=== PATIENT | male | born 1935 | race Caucasian/White ===

== ENCOUNTER 2017-02-03 07:16 | Observation (INO) | payer MEDICARE, OTHER ==
[~2017-02-03] VITALS: Ht 182.9 cm; Wt 79.5 kg
[~2017-02-03 07:16] MED LIST: ADVAI250I PO; ALLO300 PO; ASPI81TA82 PO; CARV6.25 PO; COUM5TAB PO; FERR325T PO; FURO1TAB93 PO; IPRAAER IN; KCL10C PO; LIDOCAINE 1%/EPINEPHrine 1:100,000 SOLN 30 ML VIAL ONE; MECL25CH PO; PROT40TA PO; SIMV10 PO; TAB-TAB PO
[2017-02-03] MEDS ORDERED: FERR325C PO (09:26)
[2017-02-03] MEDS ORDERED: ADVA115A INH (09:26)
[2017-02-03] MEDS ORDERED: SIMV10TA PO (09:26)
[2017-02-03] MEDS ORDERED: IPRAAER INH (09:26)
[2017-02-03] MEDS ORDERED: MECL-62 PO (09:26)
[2017-02-03] MEDS ORDERED: POTA10TA2 PO (09:26)
[2017-02-03] MEDS ORDERED: NITR1SUB3 SL (09:26)
[2017-02-03] MEDS ORDERED: ASPI81TA11 PO (09:26)
[2017-02-03] MEDS ORDERED: FURO20TA PO (09:26)
[2017-02-03] MEDS ORDERED: COUM5TAB PO (09:26)
[2017-02-03] MEDS ORDERED: ALLO300T2 PO (09:26)
[2017-02-03] MEDS ORDERED: PANT20TA2 PO (09:26)
[2017-02-03] MEDS ORDERED: CARV6.252 PO (09:26)
[2017-02-03] MEDS ORDERED: INSULIN HUMAN REGULAR 1,000 UNITS/10 ML VIAL SQ PRN (09:45)
[2017-02-03] MEDS ORDERED: POVIDONE IODINE 5% (ANTISEPSIS KIT) 4 APPLICATIONS EACH NARE PRN (09:45)
[2017-02-03] MEDS ORDERED: CHLORHEXIDINE GLUCONATE 2 % 1 PACK (2 CLOTHS) TOPICAL PRN (09:45)
[2017-02-03] MEDS ORDERED: LACTATED RINGER'S 1000 ML IV PRN (09:45)
[2017-02-03] MEDS ORDERED: SODIUM CHLORID 0.9% 500 ML IV PRN (09:45)
[2017-02-03] MEDS ORDERED: METOPROLOL TARTRATE 25 MG TAB PO PRN (09:45)
[2017-02-03 09:49] LABS: INTERNATIONAL NORMALIZED RATIO 1.4 RATIO; PROTHROMBIN TIME - PATIENT 16.1 SEC (9.8-11.6)
[2017-02-03] MEDS: AMPICILLIN/SULBAC 3 GM/NS 100 ML IV SCH ×6 (10:53→20:00)
[2017-02-03] MEDS ORDERED: LACTATED RINGER'S 1000 ML INJ 1,000 ML IV ONE (12:00)
[2017-02-03] MEDS ORDERED: PROPOFOL 200 MG/20 ML AMP IV ONE (12:00)
[2017-02-03] MEDS ORDERED: PHENYLEPH/NS 1000 MCG/10 ML SYR IV ONE (12:00)
[2017-02-03] MEDS ORDERED: ePHEDrine/NS 25 MG/5 ML SYR IV ONE (12:00)
[2017-02-03] MEDS ORDERED: BACITRACIN TOP OINT 15 GM TUBE ONE (12:23)
[2017-02-03] MEDS ORDERED: AMPICILLIN-SULBACTAM INJ 1,500 MG VIAL ONE (14:10)
[2017-02-03] MEDS: LACTATED RINGER'S 1000 ML INJ 1,000 ML IV SCH (14:30)
[2017-02-03] MEDS ORDERED: ACETAMINOPHEN/HYDROcodone 325 MG/5 MG TAB PO PRN (14:30)
[2017-02-03] MEDS ORDERED: ONDANSETRON HCL 4 MG/2 ML VIAL IV PUSH PRN (14:30)
[2017-02-03 16:00] VITALS: BP 125/62; PULSE 78; RESP 17; TEMP 98; O2SAT 94; O2SAT 96
[2017-02-03] MEDS ORDERED: NITROGLYCERIN 0.4 MG SL 25 TABS/BTL SL PRN (17:15)
[2017-02-03] MEDS: ALBUTEROL SULFATE 90 MCG/ACT HFA 8 GM INHALER INH SCH ×2 (18:00→20:53)
[2017-02-03] MEDS: FUROSEMIDE 20 MG TAB PO SCH ×2 (18:25→20:52)
[2017-02-03 19:30] VITALS: O2SAT 98
[2017-02-03 20:00] VITALS: BP 160/87; PULSE 112; RESP 18; TEMP 96.6; O2SAT 96
[2017-02-03] MEDS: POTASSIUM CHLORIDE 10 MEQ CONTROLLED RELEASE TAB PO SCH (20:52)
[2017-02-03] MEDS ORDERED: ADVAIR PO SCH (21:00)
[2017-02-03] MEDS ORDERED: CARVEDILOL 6.25 MG TAB PO SCH (21:00)
[2017-02-04] VITALS: BP 140/87; PULSE 105; RESP 18; TEMP 96.4; O2SAT 96
[2017-02-04] MEDS: LACTATED RINGER'S 1000 ML INJ 1,000 ML IV SCH (03:00)
[2017-02-04] MEDS: AMPICILLIN/SULBAC 3 GM/NS 100 ML IV SCH ×2 (04:00)
[2017-02-04 07:50] VITALS: BP 165/91; PULSE 115; RESP 20; TEMP 96.3; O2SAT 98
[2017-02-04] MEDS: POTASSIUM CHLORIDE 10 MEQ CONTROLLED RELEASE TAB PO SCH (08:47)
[2017-02-04] MEDS ORDERED: FERROUS SULFATE 325 MG (65 MG ELEMENTAL IRON) TAB PO SCH (09:00)
[2017-02-04] MEDS ORDERED: ALLOPURINOL 300 MG TAB PO SCH (09:00)
[2017-02-04] MEDS ORDERED: PRAVASTATIN SOD 20 MG TAB PO SCH (09:00)
[2017-02-04] MEDS ORDERED: PANTOPRAZOLE SOD 20 MG DELAYED RELEASE TAB PO SCH (09:00)
[2017-02-04] MEDS ORDERED: TIOTROPIUM BROMIDE 18 MCG INH INH SCH (09:00)
[2017-02-04] MEDS ORDERED: WARFARIN SOD 5 MG TAB PO SCH (16:00)
--- NOTE | 2017-02-10 13:26 | MP ---
cc: HUMERA BOND M.D. DATE OF SURGERY 02/03/[address] Humera bond PREOPERATIVE DIAGNOSIS 1. Left submandibular chronic sialoadenitis. 2. Left submandibular sialolithiasis. POSTOPERATIVE DIAGNOSIS 1. Left submandibular chronic sialoadenitis. 2. Left submandibular sialolithiasis. OPERATION PERFORMED Excision of left submandibular salivary gland. INDICATIONS Documented in the history and physical. DESCRIPTION OF OPERATION The patient was taken to OR #2 and placed in the supine position. Following induction of general anesthesia and intubation, he was position positioned for surgery of the left submandibular triangle. The skin was marked with a 6 cm line two fingerbreadths below the inferior border of the mandible. This was overlying the inferior margin of the submandibular gland. The line was injected with 3 mL of 1% Xylocaine with epinephrine 1:100,000. He was then prepped and draped for surgery. The line was incised down to the subplatysmal plane exposing the superficial layer of deep cervical fascia. This fascia was then elevated and bluntly penetrated below the level of the submandibular gland and the fascia was then dissected free from the submandibular gland on all sides using blunt and bipolar cautery dissection. During this process, the facial artery and vein were encountered. These were doubly clamped and ligated and freed from the salivary gland. Dissection continued on the superior aspect of the gland and the lingual nerve was identified. This was then freed and preserve within the neck. Mylohyoid muscle was retracted anteriorly exposing the duct of the gland. This was freed from the surrounding fascial attachments and doubly clamped and ligated using a 2-0 suture ligature. The gland which included a stone and the duct were then passed off the field as specimen. The wound was irrigated and suctioned. Closure was then begun following placement of a quarter inch Ashley drain into the depths of the wound. The platysma layer was closed with interrupted 3-0 Vicryl. Skin was closed in two layers with 4-0 Vicryl subcutaneous and 5-0 fast-absorbing plain gut in the skin. The drain was sewn in with a 3-0 Vicryl suture. A [place] dressing was applied and the procedure was terminated. The patient was reversed from anesthesia and taken to recovery in good condition. There were no complications. Blood loss was 40 mL. MD AJ Rivas/CLAUDIA /7:47 AM /1:20 PM
== END 2017-02-04 09:59 | disposition home or self-care (01) ==
LOC: PHSDC 07:16 → PH3B 14:47
PROVIDERS: ADMIT Otolaryngology; ATTEND Otolaryngology
DX: K11.23 Chronic sialoadenitis (principal); I10 Essential (primary) hypertension; K21.9 Gastro-esophageal reflux disease without esophagitis; J44.9 Chronic obstructive pulmonary disease, unspecified; I48.91 Unspecified atrial fibrillation; Z79.01 Long term (current) use of anticoagulants; Z95.810 Presence of automatic (implantable) cardiac defibrillator; Z79.899 Other long term (current) drug therapy; Z87.891 Personal history of nicotine dependence
CPT/HCPCS: 00100; 36415; 42440; 85610; 88307; G0378; J0295; J2370; J3010; J7120; 88305

== ENCOUNTER → 2017-07-28 | Outpatient (CLI) | payer MEDICARE, OTHER ==
[~2017-07-28] MED LIST changes: +ADVA115A INH; -ADVAI250I PO; -ALLO300 PO; +ALLO300T2 PO; +ASPI81TA23 PO; -ASPI81TA82 PO; -CARV6.25 PO; +CARV6.252 PO; +FERR325C PO; -FERR325T PO; -FURO1TAB93 PO; +FURO20TA PO; -IPRAAER IN; +IPRAAER INH; -KCL10C PO; -LIDOCAINE 1%/EPINEPHrine 1:100,000 SOLN 30 ML VIAL ONE; +MECL-62 PO; -MECL25CH PO; +NITR1SUB3 SL; +PANT20TA2 PO; +POTA10TA2 PO; -PROT40TA PO; -SIMV10 PO; +SIMV10TA PO; -TAB-TAB PO
--- NOTE | 2017-07-31 09:51 | RSPPFT ---
DATE OF PROCEDURE: 07/28/17 COMMENTS: Spirometry with FVC of 4.0 at 96% of predicted, FEV1 of 2.1 at 66%, FEV1/FVC ratio is decreased. Flow is decreased at FEF 25, FEF 50, FEF 75 and FEF 25-75. There is no response after bronchodilator treatment. Lung volumes show residual volume is increased. TLC is normal. Severely decreased diffusion capacity. Flow volume loop indicates an obstructive pattern. IMPRESSION: 1. Moderately severe obstructive lung disease. 2. No response after bronchodilator treatment. 3. Lung volumes show hyperinflation and air trapping. 4. Severe loss in diffusion capacity.
== END ==
LOC: PHRSP 07:09
PROVIDERS: ATTEND Specialist
DX: J44.9 Chronic obstructive pulmonary disease, unspecified (principal)
CPT/HCPCS: 94060; 94726; 94729